=== PATIENT | female | born 1965 | race Caucasian/White ===

== ENCOUNTER 2017-05-19 12:46 | Observation (INO) | payer OTHER ==
[~2017-05-19] VITALS: Ht 157.5 cm; Wt 83.5 kg
[2017-05-19] MEDS ORDERED: SODIUM CHLORIDE 0.9% 1000ML 1,000 ML IV STA (13:06)
--- NOTE | 2017-05-19 13:12 | EMERGENCY ROOM VISIT NOTE ---
History Report prepared by Ayad: Shannen Trammell Under the Supervision of: Dr. Kaleb Mercado M.D. First contact with patient: 12:57 Chief Complaint: REFERRED BY DOCTOR Stated Complaint: GALLBLADDER History of Present Illness The patient is a 51 year old female who presents to the Emergency Room with complaints of intermittent abdominal pain beginning on Thursday, three days ago. The patient was at [facility] where she had a CT done which showed cholecystitis. She states she took three ibuprofen this morning at 9:30 am. She reports dark urine and decreased appetite but she denies any vomiting or fever. The patient last ate around 11:00 am. She is not on any blood thinners. The patient smokes half a pack of cigarettes a day. Source of History: patient Onset: three days ago Position: abdomen Quality: other (pain) Timing: intermittent Associated Symptoms: + abdominal pain, + urinary symptoms, No fevers, No vomiting Review of Systems See HPI for pertinent positives & negatives. A total of 10 systems reviewed and were otherwise negative. Past Medical & Surgical Medical Problems: (1) Cholecystitis (2) No Known Active Medical Problems Family History Patient reports no known family medical history. Social History Smoking Status: Current Every Day Smoker Marital Status: Housing Status: lives with family Current/Historical Medications No Active Prescriptions or Reported Meds Allergies Coded Allergies: No Known Allergies (Verified , 05/19/17) Physical Exam Vital Signs Date Time Temp Pulse Resp B/P (MAP) Pulse Ox O2 Delivery O2 Flow Rate FiO2 05/19/17 14:19 81 16 148/94 96 05/19/17 12:50 36.9 93 18 161/91 98 Room Air Physical Exam GENERAL: Patient is uncomfortable appearing and in mild distress. EYES: No scleral icterus, unremarkable pupils. ENT: Mucous membranes moist, no nasal congestion. NECK: No masses appreciated, no meningismus, trachea is midline. RESPIRATORY: No dyspnea. Clear to auscultation and equal bilaterally. No wheeze , no rhonchi. CARDIOVASCULAR: Regular rate and rhythm. No murmurs, rubs, gallops appreciated. GASTROINTESTINAL:Moderate RUQ tenderness to palpation with guarding. Abdomen soft, no peritonitis. Bowel sounds positive. No masses appreciated. BACK: No midline tenderness, no CVA tenderness EXTREMITIES: Normal motion all extremities, no cyanosis, no edema. NEUROLOGIC: Alert and oriented, no acute motor or sensory deficits, no focal weakness, cranial nerves grossly intact. SKIN: No rash, no jaundice, no diaphoresis. Medical Decision & Procedures ER Provider Diagnostic Interpretation: Radiology results and stated below per my review and radiologist interpretation: CHEST ONE VIEW PORTABLE FINDINGS: Cardiomediastinal and hilar silhouettes are within normal limits. There is no pneumothorax, pleural effusion, focal airspace consolidation or overt pulmonary edema. The bones of the chest appear grossly intact. IMPRESSION: No acute process. The above report was generated using voice recognition software. It may contain grammatical, syntax or spelling errors. Electronically signed by: Albert Duff M.D. Laboratory Results 05/19/17 13:14 Red Blood Count 4.16, Mean Corpuscular Volume 90.9, Mean Corpuscular Hemoglobin 32.5, Mean Corpuscular Hemoglobin Concent 35.7, Mean Platelet Volume 9.7, Neutrophils (%) (Auto) 64.6, Lymphocytes (%) (Auto) 26.1, Monocytes (%) (Auto) 7.7, Eosinophils (%) (Auto) 1.0, Basophils (%) (Auto) 0.2, Neutrophils # (Auto) 6.07, Lymphocytes # (Auto) 2.45, Monocytes # (Auto) 0.72, Eosinophils # (Auto) 0.09, Basophils # (Auto) 0.02 05/19/17 13:14 Test 05/19/17 13:14 05/19/17 13:57 White Blood Count 9.39 K/uL (4.8-10.8) Red Blood Count 4.16 M/uL (4.2-5.4) Hemoglobin 13.5 g/dL (12.0-16.0) Hematocrit 37.8 % (37-47) Mean Corpuscular Volume 90.9 fL (80-100) Mean Corpuscular Hemoglobin 32.5 pg (25-34) Mean Corpuscular Hemoglobin Concent 35.7 g/dl (32-36) Platelet Count 252 K/uL (130-400) Mean Platelet Volume 9.7 fL (7.4-10.4) Neutrophils (%) (Auto) 64.6 % Lymphocytes (%) (Auto) 26.1 % Monocytes (%) (Auto) 7.7 % Eosinophils (%) (Auto) 1.0 % Basophils (%) (Auto) 0.2 % Neutrophils # (Auto) 6.07 K/uL (1.4-6.5) Lymphocytes # (Auto) 2.45 K/uL (1.2-3.4) Monocytes # (Auto) 0.72 K/uL (0.11-0.59) Eosinophils # (Auto) 0.09 K/uL (0-0.5) Basophils # (Auto) 0.02 K/uL (0-0.2) RDW Standard Deviation 42.9 fL (36.4-46.3) RDW Coefficient of Variation 12.9 % (11.5-14.5) Immature Granulocyte % (Auto) 0.4 % Immature Granulocyte # (Auto) 0.04 K/uL (0.00-0.02) Anion Gap 6.0 mmol/L (3-11) Est Creatinine Clear Calc Drug Dose 82.5 ml/min Estimated GFR () 99.1 Estimated GFR (Non- 85.5 BUN/Creatinine Ratio 10.7 (10-20) Calcium Level 9.1 mg/dl (8.5-10.1) Total Bilirubin 0.7 mg/dl (0.2-1) Direct Bilirubin 0.2 mg/dl (0-0.2) Aspartate Amino Transf (AST/SGOT) 23 U/L (15-37) Alanine Aminotransferase (ALT/SGPT) 33 U/L (12-78) Alkaline Phosphatase 99 U/L (45-117) Total Protein 7.6 gm/dl (6.4-8.2) Albumin 3.4 gm/dl (3.4-5.0) Lipase 144 U/L (73-393) Urine Color YELLOW Urine Appearance CLEAR (CLEAR) Urine pH 5.5 (4.5-7.5) Urine Specific Luckey 1.005 (1.000-1.030) Urine Protein NEG (NEG) Urine Glucose (UA) NEG (NEG) Urine Ketones NEG (NEG) Urine Occult Blood 1+ (NEG) Urine Nitrite NEG (NEG) Urine Bilirubin NEG (NEG) Urine Urobilinogen NEG (NEG) Urine Leukocyte Esterase TRACE (NEG) Urine WBC (Auto) /hpf (0-5) Urine RBC (Auto) /hpf (0-4) Urine Hyaline Casts (Auto) /lpf (0-5) Urine Epithelial Cells (Auto) /lpf (0-5) Urine Bacteria (Auto) (NEG) Urine RBC 0-4 /hpf (0-4) Urine WBC 1-5 /hpf (0-5) Urine Epithelial Cells 10-20 /lpf (0-5) Urine Bacteria NEG (NEG) Laboratory results as reviewed by me. Medications Administered Medications (Trade) Dose Ordered Sig/Pelon Route Start Time Stop Time Status Last Admin Dose Admin Sodium Chloride 1,000 ml @ 75 mls/hr [id number] STAT IV 05/19/17 13:06 05/19/17 15:41 DC 05/19/17 13:16 75 MLS/HR Cefoxitin Sodium (Mefoxin 2000mg/ 60 ml D5W) 2,000 mg NOW STAT IV 05/19/17 13:32 05/19/17 13:33 DC 05/19/17 13:45 2,000 MG ECG Per My Interpretation Indication: abdominal pain Rate (beats per minute): 84 Rhythm: normal sinus Findings: no acute ischemic change, no ectopy, other (QTC 413) ED Course 1258: The patient was evaluated in room B7. A complete history and physical exam was performed. 1330: Discussed the patient's case with Edinson Villa. He states he is in an emergency but will be into the ED soon to evaluate the patient. 1426: Dr. Khan-Surgery at bedside. I discussed the patient's case with him. He declines any need for further imaging, the patient will be taken to the OR. Medical Decision Differential: Cholecystitis, Gallbladder disfunction, Hepatic Disfunction, Gastritis/PUD, Pancreatitis, ACS, Aortic Pathology, amongst other pathologies entertained. 51 yr old female arrives for evaluation of acute RUQ pain which returned after happening a few weeks ago. Had CT as outpatient which revealed acute cholecystitis which is consistent with the TTP she has over RUQ. Labs look OK without elevated Bili and wbc OK. CXR and EKG for pre-op purposes. 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 Surgery contacted and agree with holding off on further imaging. Given IV mefoxin for initial coverage. Not septic at time of admission. No evidence of perforation at this time. Medication Reconcilliation Current Medication List: was personally reviewed by me Blood Pressure Screening Patient's blood pressure: Elevated blood pressure Blood pressure disposition: Elevated BP felt to be situational Consults Time Called: 1329 Consulting Physician: Edinson Ng Surgery Returned Call: 1330 Discussed the patient's case with Edinson Ng Surgery. He states he is in an emergency but will be into the ED soon to evaluate the patient. Impression Primary Impression: Acute cholecystitis Scribe Attestation The scribe's documentation has been prepared under my direction and personally reviewed by me in its entirety. I confirm that the note above accurately reflects all work, treatment, procedures, and medical decision making performed by me. Departure Information Dispostion Being Evaluated By Surgeon Prescriptions No Active Prescriptions or Reported Meds Referrals Caleb Mendez M.D. (PCP) Patient Instructions My [facility]
[2017-05-19 13:25] LABS: BASO % 0.2 %; BASO ABS # 0.02 K/uL (0-0.2); EOS ABS # 0.09 K/uL (0-0.5); HEMATOCRIT 37.8 % (37-47); HEMOGLOBIN 13.5 g/dL (12.0-16.0); IG# 0.04 K/uL (0.00-0.02); LYMPH % 26.1 %; LYMPH ABS # 2.45 K/uL (1.2-3.4); MEAN CELL VOLUME 90.9 fL (80-100); MEAN CORPUSCULAR HEMOGLOBIN 32.5 pg (25-34); MEAN CORPUSCULAR HGB CONC 35.7 g/dl (32-36); MEAN PLATELET VOLUME 9.7 fL (7.4-10.4); MONO % 7.7 %; MONO ABS # 0.72 K/uL (0.11-0.59); NEUT % 64.6 %; NEUT ABS # 6.07 K/uL (1.4-6.5); PLATELET COUNT 252 K/uL (130-400); RED CELL DISTRIBUTION WIDTH CV 12.9 % (11.5-14.5); RED CELL DISTRIBUTION WIDTH SD 42.9 fL (36.4-46.3); WHITE BLOOD COUNT 9.39 K/uL (4.8-10.8)
[2017-05-19] MEDS ORDERED: CEFOXITIN 2000MG/60 ML D5W IV STA (13:32)
--- NOTE | 2017-05-19 13:44 | DIAGNOSTIC IMAGING REPORT ---
CHEST ONE VIEW PORTABLE HISTORY: 51 years-old Female pre-op preoperative exam. No acute chest complaints COMPARISON: None available TECHNIQUE: Portable AP view of the chest FINDINGS: Cardiomediastinal and hilar silhouettes are within normal limits. There is no pneumothorax, pleural effusion, focal airspace consolidation or overt pulmonary edema. The bones of the chest appear grossly intact. IMPRESSION: No acute process. The above report was generated using voice recognition software. It may contain grammatical, syntax or spelling errors. Electronically signed by: Albert Duff M.D. 05/19/2017 1:43 PM Dictated Date/Time: 05/19/2017 1:42 PM
[2017-05-19 13:53] LABS: ALBUMIN 3.4 gm/dl (3.4-5.0); CALCIUM 9.1 mg/dl (8.5-10.1); CREATININE 0.79 mg/dl (0.60-1.20); POTASSIUM 3.8 mmol/L (3.5-5.1)
[2017-05-19 13:57] LABS: TOTAL PROTEIN 7.6 gm/dl (6.4-8.2)
--- NOTE | 2017-05-19 14:24 | History and Physical ---
History & Physical Date May 19, 2017. History of Present Illness The patient is a 51 year old female with complaints of a 3 day history of upper abdominal pain, worse with eating. US yesterday showed stones/sludge and subsequent CT done at [facility] today shows acute cholecystitis. Past Medical/Surgical History Medical Problems: (1) No Known Active Medical Problems Additional History Hepatic Disease: No Endocrine Disorder: No Kidney Disease: No Hypertension: No Heart Disease: No Bleeding Tendencies: No Infectious Diseases: No Allergies Coded Allergies: No Known Allergies (Verified , 05/19/17) Home Medications No Active Prescriptions or Reported Meds Physical Examination Skin: warm/dry, no rash Eyes: normal inspection, EOMI, sclerae normal Head: normocephalic, atraumatic Neck: supple, trachea midline Respiratory/Chest: no respiratory distress Cardiovascular: no edema Abdomen / GI: + pertinent finding (+RUQ firmness with exquiset tenderness over gallbladder) Neurologic/Psych: alert, oriented x 3 Diagnosis acute calculous cholecystits Plan of Treatment LFT's normal discussed options. discussed risks ( bleeding/infection/dvt/pe/injury to other organs, bile leaks, etc...) questions answered. will proceed with lap gisselle today
[2017-05-19] MEDS ORDERED: ONDANSETRON INJ 2 MG/ML 2 ML VIAL IV PRN ×3 (14:30→20:45)
[2017-05-19] MEDS ORDERED: IV FLUIDS COMPLETED PRN ×3 (15:15→21:00)
[2017-05-19] MEDS: MoRPHine SULFATE 2 MG/ML CARP IV PRN ×2 (15:42→22:33)
[2017-05-19] MEDS ORDERED: LACTATED RINGER'S 1000ML 1,000 ML IV SCH ×2 (16:00→20:36)
[2017-05-19 16:30] VITALS: BP 157/96; PULSE 77; TEMP 36.8; O2SAT 96; Ht 157.5 cm; Wt 83.5 kg
[2017-05-19] MEDS ORDERED: AMPICILLIN/SULBACTAM SOD INJ 1,500 MG in SODIUM CHLORIDE 0.9% 100ML 100 ML IV SCH (18:00)
--- NOTE | 2017-05-19 18:14 | History & Physical Bridge Note ---
H&P Re-Evaluation Bridge Note: I have examined the patient, reviewed the History & Physical and in the interval since the performance of the History & Physical I have noted the following changes of clinical significance: No changes noted
[2017-05-19] MEDS ORDERED: BUPIVACAINE/EPINEPHRINE 0.5% MPF 1:200,000 30 ML VIAL ONE (18:39)
[2017-05-19] MEDS ORDERED: MIDAZOLAM HCL 1 MG/ML 2ML VIAL ONE (18:40)
[2017-05-19] MEDS ORDERED: FENTANYL CITRATE INJ 50 MCG/1 ML 2 ML VIAL ONE ×3 (18:40→20:17)
[2017-05-19] MEDS ORDERED: PROPOFOL IV EMULSION 10 MG/ML 20 ML VIAL IV ONE (18:41)
[2017-05-19] MEDS ORDERED: LIDOCAINE HCL 2% 2 ML VIAL (20MG/ML) ONE (18:41)
[2017-05-19] MEDS ORDERED: ROCURONIUM BROMIDE 10 MG/ML 5 ML VIAL IV ONE (18:41)
[2017-05-19] MEDS ORDERED: NALOXONE HCL 0.4 MG/1 ML VIAL/CARP IV PRN (18:45)
[2017-05-19] MEDS ORDERED: ATROPINE SULFATE 0.1 MG/ML 5ML SYR IV PRN (18:45)
[2017-05-19] MEDS ORDERED: FLUMAZENIL 0.1 MG/1 ML 10 ML VIAL IV PRN (18:45)
[2017-05-19] MEDS ORDERED: FENTANYL CITRATE INJ 50 MCG/1 ML 2 ML VIAL IV PRN (18:45)
[2017-05-19] MEDS ORDERED: LABETALOL HCL IV 5 MG/ML 20ML IV PRN (18:45)
[2017-05-19] MEDS ORDERED: EpHEDrine SULFATE INJ 50 MG/ML AMP IV PRN (18:45)
[2017-05-19] MEDS ORDERED: PHENYLEPHRINE 100MCG/ML 5ML SYR IV PRN (18:45)
[2017-05-19] MEDS ORDERED: MEPERIDINE HCL 25 MG/ML CARP IV PRN (18:45)
[2017-05-19] MEDS ORDERED: HYDROmorphone INJ 2 MG/ML SYR/VIAL IV PRN (18:45)
[2017-05-19] MEDS ORDERED: ONDANSETRON INJ 2 MG/ML 2 ML VIAL ONE ×3 (19:00→21:10)
[2017-05-19] MEDS ORDERED: DEXAMETHASONE SOD INJ 4 MG/ML VIAL ONE ×2 (19:00→19:15)
[2017-05-19] MEDS ORDERED: CEFOXITIN SOD 1 GM VIAL ONE (19:00)
[2017-05-19] MEDS ORDERED: ESMOLOL HCL 10 MG/ML 10 ML VIAL ONE (19:16)
[2017-05-19] MEDS ORDERED: KETOROLAC TROMETHAMINE 30 MG/ML VIAL ONE (20:07)
--- NOTE | 2017-05-19 20:26 | [facility] Post Operative Brief Note ---
Immediate Operative Summary Operative Date May 19, 2017. Pre-Operative Diagnosis Acute calculous cholecystitis Post-Operative Diagnosis Acute calculous cholecystitis, umbilical hernia Procedure(s) Performed Laparoscopic Cholecystectomy Surgeon Dr Khan Floor Layer Tile Surgeon(s) Vale Law PA-C Estimated Blood Loss 150cc Findings Consistent with Post-Op Diagnosis umbilical hernia Specimens A. Gallbladder and contents Drains ROSLYN into RUQ Anesthesia Type General Complication(s) none
--- NOTE | 2017-05-19 20:37 | [facility] Operative Report ---
Operative Report Operative Date May 19, 2017. Pre-Operative Diagnosis Acute calculous cholecystitis Post-Operative Diagnosis Acute calculous cholecystitis, umbilical hernia Procedure(s) Performed Laparoscopic Cholecystectomy Surgeon Dr Khan Development Disability Specialist Surgeon(s) Vale Law PA-C Estimated Blood Loss 150cc Findings umbilical hernia Specimens A. Gallbladder and contents Drains ROSLYN into RUQ Anesthesia Type General Complication(s) none Description of Procedure After informed consent was obtained the patient was taken to the operating room and placed in the supine position. After successful intubation the abdomen was sterilely prepped and draped in usual fashion. A periumbilical incision was made with an 11 blade scalpel and carried down through the soft tissue using electrocautery. The anterior rectus fascia was opened using electrocautery and 2 #0 Vicryl stay sutures were placed. We noted an umbilical hernia that we would repair at the end of the case. The peritoneum was elevated with hemostats and incised under direct vision using Metzenbaum scissors. A finger sweep was performed and a 12 mm Keller trocar was placed. The abdomen was insufflated to 18 mmHg. The laparoscope was inserted and the abdomen was examined in 360. We immediately noted a markedly inflamed gallbladder with omental wrapping. a subxiphoid 5 mm port which would later be converted to a 12 mm port and 2 right upper quadrant 5 mm ports were placed under direct vision. The patient was placed in a reverse Trendelenburg position and slightly air planed to the left. I began by peeling the omentum off of the gallbladder. The gallbladder was so distended that we could not grasp it with graspers. I therefore drained it with a gallbladder needle revealing white bile indicating complete cystic duct obstruction. After draining the gallbladder we were then able to grasp the gallbladder and elevated superiorly and laterally. A [place] dissector was used to take down adhesions around the neck of the gallbladder. The cystic duct was identified and skeletonized. Because of the inflammation it was too thick to use a gallbladder clip. At this point I converted the trocar to a 12 mm and used a 30 mm brown cartridge ALEX stapler to transect the cystic duct. In similar fashion the cystic artery was identified and skeletonized clipped and divided. The gallbladder was removed from the gallbladder fossa with electrocautery. Because of the inflammation there was generalized oozing on the gallbladder fossa. Eventually I was able to get the gallbladder completely removed intact and it was placed into an Endo Catch bag. Thorough irrigation was performed. At the end of the procedure there was adequate hemostasis and no evidence of any bile leaks. I decided to place some Surgicel into the gallbladder fossa as well as a 10 flat Néstor-Garza drain and brought out through 1 of the port sites. It was secured to skin using 2-0 nylon. A final look around the abdomen showed no other abnormalities. I had to extend the umbilical incision in order to get the gallbladder and contents out. The gallbladder and trochars were all removed and the abdomen was desufflated. I was then able to completely reduce the hernia sac associated with the umbilical defect. I was able to include the fascial defect with my port closure. I used 0 Vicryl with multiple [id number] sutures to primarily close the defect. All the wounds were irrigated and closed using 4-0 Monocryl. Marcaine was injected around them for postoperative analgesia and skin glue used as a dressing. The patient was awaken extubated and transferred to recovery in stable condition. My physician's accounts receivable assistant was present through the entire case. He helped prep the patient. Helped with exposure for trocar placement. He helped retract the gallbladder throughout my dissection and helped with wound closure and dressing placement. I attest to the content of the Intraoperative Record and any orders documented therein. Any exceptions are noted below.
--- NOTE | 2017-05-19 20:41 | Anesthesiology Progress Note ---
Anesthesia Post Op Note Date & Time May 19, 2017 at 20:41 Vital Signs Pain Intensity: 1 Vital Signs Past 12 Hours Date Time Temp Pulse Resp B/P (MAP) Pulse Ox O2 Delivery O2 Flow Rate FiO2 05/19/17 16:30 36.8 77 16 157/96 96 Room Air 05/19/17 15:42 77 16 162/101 97 Room Air 05/19/17 14:19 81 16 148/94 96 05/19/17 12:50 36.9 93 18 161/91 98 Room Air Notes Mental Status: alert / awake / arousable, participated in evaluation Pt Amnestic to Procedure: Yes Nausea / Vomiting: adequately controlled Pain: adequately controlled Airway Patency, RR, SpO2: stable & adequate BP & HR: stable & adequate Hydration State: stable & adequate Anesthetic Complications: no major complications apparent
[2017-05-19] MEDS ORDERED: HYDROmorphone INJ 1 MG/ML SYR IV PRN (20:45)
[2017-05-19] MEDS ORDERED: HYDROmorphone INJ 0.5 MG/0.5 ML SYR IV PRN (20:45)
[2017-05-19] MEDS ORDERED: HYDROCODONE/ACETAMIN 5/325MG TAB PO PRN (20:45)
[2017-05-19 21:20] VITALS: BP 145/85; PULSE 84; TEMP 36.9; O2SAT 96
[2017-05-19 21:40] LABS: BASO % 0.2 %; BASO ABS # 0.02 K/uL (0-0.2); EOS % 0.2 %; EOS ABS # 0.02 K/uL (0-0.5); HEMATOCRIT 36.4 % (37-47); HEMOGLOBIN 12.5 g/dL (12.0-16.0); IG# 0.02 K/uL (0.00-0.02); LYMPH % 6.9 %; LYMPH ABS # 0.75 K/uL (1.2-3.4); MEAN CELL VOLUME 92.2 fL (80-100); MEAN CORPUSCULAR HEMOGLOBIN 31.6 pg (25-34); MEAN CORPUSCULAR HGB CONC 34.3 g/dl (32-36); MEAN PLATELET VOLUME 9.6 fL (7.4-10.4); MONO % 2.7 %; NEUT % 89.8 %; PLATELET COUNT 227 K/uL (130-400); RED CELL DISTRIBUTION WIDTH CV 12.8 % (11.5-14.5); RED CELL DISTRIBUTION WIDTH SD 43.4 fL (36.4-46.3); WHITE BLOOD COUNT 10.91 K/uL (4.8-10.8)
[2017-05-19] MEDS: ACETAMINOPHEN IV 1,000 MG in EMPTY BAG 0 ML IV SCH (21:47)
[2017-05-19 21:55] VITALS: BP 147/83; PULSE 88; TEMP 36.9; O2SAT 95
[2017-05-19 22:00] LABS: CALCIUM 8.7 mg/dl (8.5-10.1); CREATININE 0.83 mg/dl (0.60-1.20); POTASSIUM 3.7 mmol/L (3.5-5.1)
[2017-05-19 22:23] VITALS: BP 134/88; PULSE 88; TEMP 36.9; O2SAT 91
[2017-05-19 23:20] VITALS: BP 131/75; PULSE 88; TEMP 36.9; O2SAT 97
[2017-05-20 00:20] VITALS: BP 135/82; PULSE 94; TEMP 36.9; O2SAT 96
[2017-05-20] MEDS: CEFOXITIN IV 2,000 MG in DEXTROSE 5% 50ML 50 ML IV SCH ×2 (00:49→06:24)
[2017-05-20 03:05] VITALS: BP 144/79; PULSE 68; TEMP 36.5; O2SAT 96
[2017-05-20] MEDS: HYDROCODONE/ACETAMIN 5/325MG TAB PO PRN ×2 (03:12→10:36)
[2017-05-20 05:40] VITALS: O2SAT 92
[2017-05-20] MEDS ORDERED: CEFOXITIN IV 2,000 MG in DEXTROSE 5% 50ML 50 ML IV ONE (06:00)
[2017-05-20] MEDS: ACETAMINOPHEN IV 1,000 MG in EMPTY BAG 0 ML IV SCH (06:08)
--- NOTE | 2017-05-20 06:48 | Surgery Progress Note ---
Surgery Progress Note Date of Service May 20, 2017. Subjective Post OP Day: 1 + feeling well, + ambulating, + pain controlled, + diet (Reports she has not eaten yet. ), No complaints, No nausea, No vomiting Reports she had some issues with urinating earlier. She was bladder scanned. Reports this has resolved and she is urinating okay at this time. Objective Vital Signs: Date Time Temp Pulse Resp B/P (MAP) Pulse Ox O2 Delivery O2 Flow Rate FiO2 05/20/17 05:40 92 Room Air 05/20/17 03:05 36.5 68 17 144/79 (100) 96 Nasal Cannula 2.0 05/20/17 00:20 36.9 94 18 135/82 (99) 96 Room Air 05/19/17 23:30 Nasal Cannula 2.0 05/19/17 23:20 36.9 88 16 131/75 (93) 97 Nasal Cannula 2.0 05/19/17 22:23 36.9 88 16 134/88 (103) 91 Nasal Cannula 2.0 05/19/17 21:55 36.9 88 16 147/83 (104) 95 Nasal Cannula 2.0 05/19/17 21:20 36.9 84 16 145/85 (105) 96 Nasal Cannula 2.0 05/19/17 21:20 Nasal Cannula 2.0 05/19/17 21:10 37.0 83 18 141/80 96 Nasal Cannula 2 05/19/17 21:00 79 18 150/79 96 Nasal Cannula 2 05/19/17 20:50 91 16 147/80 96 Oxymask 6 05/19/17 20:40 86 14 141/82 95 Oxymask 6 05/19/17 20:34 37.0 85 16 139/90 96 Oxymask 6 05/19/17 16:30 36.8 77 16 157/96 96 Room Air 05/19/17 15:42 77 16 162/101 97 Room Air 05/19/17 14:19 81 16 148/94 96 05/19/17 12:50 36.9 93 18 161/91 98 Room Air Physical Exam: ROSLYN drainage (minimal drainage, serosanguinous) General Appearance: WD/WN, no apparent distress Head: normocephalic, atraumatic Respiratory/Chest: no respiratory distress, no accessory muscle use Abdomen: non distended, soft, no organomegaly, + tenderness (Incisional mild) Incision(s): clean, dry, intact, no erythema, no drainage Laboratory Results: Results Past 24 Hours Test 05/19/17 13:14 05/19/17 13:57 05/19/17 18:45 05/19/17 21:28 Range/Units White Blood Count 9.39 10.91 4.8-10.8 K/uL Red Blood Count 4.16 3.95 4.2-5.4 M/uL Hemoglobin 13.5 12.5 12.0-16.0 g/dL Hematocrit 37.8 36.4 37-47 % Mean Corpuscular Volume 90.9 92.2 80-100 fL Mean Corpuscular Hemoglobin 32.5 31.6 25-34 pg Mean Corpuscular Hemoglobin Concent 35.7 34.3 32-36 g/dl Platelet Count 252 227 130-400 K/uL Mean Platelet Volume 9.7 9.6 7.4-10.4 fL Neutrophils (%) (Auto) 64.6 89.8 % Lymphocytes (%) (Auto) 26.1 6.9 % Monocytes (%) (Auto) 7.7 2.7 % Eosinophils (%) (Auto) 1.0 0.2 % Basophils (%) (Auto) 0.2 0.2 % Neutrophils # (Auto) 6.07 9.80 1.4-6.5 K/uL Lymphocytes # (Auto) 2.45 0.75 1.2-3.4 K/uL Monocytes # (Auto) 0.72 0.30 0.11-0.59 K/uL Eosinophils # (Auto) 0.09 0.02 0-0.5 K/uL Basophils # (Auto) 0.02 0.02 0-0.2 K/uL RDW Standard Deviation 42.9 43.4 36.4-46.3 fL RDW Coefficient of Variation 12.9 12.8 11.5-14.5 % Immature Granulocyte % (Auto) 0.4 0.2 % Immature Granulocyte # (Auto) 0.04 0.02 0.00-0.02 K/uL Sodium Level 138 138 136-145 mmol/L Potassium Level 3.8 3.7 3.5-5.1 mmol/L Chloride Level 107 108 98-107 mmol/L Carbon Dioxide Level 25 22 21-32 mmol/L Anion Gap 6.0 8.0 3-11 mmol/L Blood Urea Nitrogen 8 10 7-18 mg/dl Creatinine 0.79 0.83 0.60-1.20 mg/dl Est Creatinine Clear Calc Drug Dose 82.5 78.5 ml/min Estimated GFR () 99.1 93.3 Estimated GFR (Non- 85.5 80.5 BUN/Creatinine Ratio 10.7 11.7 10-20 Random Glucose 88 133 70-99 mg/dl Calcium Level 9.1 8.7 8.5-10.1 mg/dl Total Bilirubin 0.7 0.9 0.2-1 mg/dl Direct Bilirubin 0.2 0.3 0-0.2 mg/dl Aspartate Amino Transf (AST/SGOT) 23 51 15-37 U/L Alanine Aminotransferase (ALT/SGPT) 33 49 12-78 U/L Alkaline Phosphatase 99 97 45-117 U/L Total Protein 7.6 7.0 6.4-8.2 gm/dl Albumin 3.4 3.0 3.4-5.0 gm/dl Lipase 144 73-393 U/L Urine Color YELLOW Urine Appearance CLEAR CLEAR Urine pH 5.5 4.5-7.5 Urine Specific Crawford 1.005 1.000-1.030 Urine Protein NEG NEG Urine Glucose (UA) NEG NEG Urine Ketones NEG NEG Urine Occult Blood 1+ NEG Urine Nitrite NEG NEG Urine Bilirubin NEG NEG Urine Urobilinogen NEG NEG Urine Leukocyte Esterase TRACE NEG Urine WBC (Auto) 0-5 /hpf Urine RBC (Auto) 0-4 /hpf Urine Hyaline Casts (Auto) 0-5 /lpf Urine Epithelial Cells (Auto) 0-5 /lpf Urine Bacteria (Auto) NEG Urine RBC 0-4 0-4 /hpf Urine WBC 1-5 0-5 /hpf Urine Epithelial Cells 10-20 0-5 /lpf Urine Bacteria NEG NEG Test 05/20/17 04:44 05/20/17 06:30 Range/Units Assessment & Plan POD #1 s/p laparoscopic cholecystectomy pain controlled, Urinating okay, No N/V, has not eaten yet per patient. Full liquids for breakfast, ADAT. Minimal ROSLYN drainage, keep for now. most likely pull prior to D/C. AM labs pending. Probable d/c today if she tolerates foods.
[2017-05-20] MEDS ORDERED: HYDR-5688 PO (06:51)
--- NOTE | 2017-05-20 06:51 | Discharge Instructions ---
Discharge Instructions Date of Service May 20, 2017. Admission Reason for Admission: Cholecystitis Discharge Discharge Diagnosis / Problem: cholecystitis Discharge Goals Goal(s): Decrease discomfort, Improve function Activity Recommendations Activity Limitations: as noted below Lifting Limitations: no more than 10 pounds, until after follow-up appointment Exercise/Sports Limitations: until after follow-up appointment May Resume Sexual Activity: after follow-up appointment Shower/Bathe: tomorrow Driving or Machine Use: resume 3 days after discharge (Please do not drive while using narcotic pain medication) . Instructions / Follow-Up Instructions / Follow-Up You have surgical glue covering your incisions. Please allow this to fall off on its own. You have been prescribed norco to take as needed for pain relief. Please follow-up with Dr. Khan in 1-2 weeks. Contact our office at to schedule an appointment if you have not done so already. Please contact our office with any further questions or concerns. [employer]. [address] [place] [address]. Current Hospital Diet Patient's current hospital diet: Full Liquid Diet Discharge Diet Recommended Diet: Regular Diet Procedures Procedures Performed: Laparoscopic Cholecystectomy Pending Studies Studies pending at discharge: yes List of pending studies: pathology Medical Emergencies . Who to Call and When: Medical Emergencies: If at any time you feel your situation is an emergency, please call 911 immediately. . Non-Emergent Contact Non-Emergency issues call your: Primary Care Provider, Surgeon Call Non-Emergent contact if: you have a fever, temperature is above 101.5, your pain is not controlled, your pain is worsening, wound has increased drainage, wound has increased redness . "Provider Documentation" section prepared by Slick Law. . [place] Drug Monitoring Program Search Results: patient reviewed within database, no issues identified
[2017-05-20 07:21] LABS: HEMATOCRIT 33.9 % (37-47); IG# 0.03 K/uL (0.00-0.02); LYMPH % 10.4 %; LYMPH ABS # 0.98 K/uL (1.2-3.4); MEAN CELL VOLUME 90.9 fL (80-100); MEAN CORPUSCULAR HEMOGLOBIN 32.2 pg (25-34); MEAN CORPUSCULAR HGB CONC 35.4 g/dl (32-36); MEAN PLATELET VOLUME 9.6 fL (7.4-10.4); MONO % 3.7 %; MONO ABS # 0.35 K/uL (0.11-0.59); NEUT % 85.6 %; NEUT ABS # 8.02 K/uL (1.4-6.5); PLATELET COUNT 245 K/uL (130-400); RED CELL DISTRIBUTION WIDTH CV 12.7 % (11.5-14.5); RED CELL DISTRIBUTION WIDTH SD 42.4 fL (36.4-46.3); WHITE BLOOD COUNT 9.38 K/uL (4.8-10.8)
[2017-05-20 07:53] VITALS: BP 122/76; PULSE 63; TEMP 36.7; O2SAT 93
[2017-05-20 08:42] VITALS: O2SAT 93
[2017-05-20 10:48] VITALS: BP 122/76; PULSE 63; TEMP 36.7; O2SAT 93
--- NOTE | 2017-05-20 11:05 | Anesthesiology Progress Note ---
Anesthesia Post Op Note Date & Time May 20, 2017 at 11:05 Vital Signs Pain Intensity: 6.5 Vital Signs Past 12 Hours Date Time Temp Pulse Resp B/P (MAP) Pulse Ox O2 Delivery O2 Flow Rate FiO2 05/20/17 10:48 36.7 63 16 93 Room Air 05/20/17 08:42 93 Room Air 05/20/17 07:53 36.7 63 16 122/76 (91) 93 Room Air 05/20/17 07:45 Room Air 05/20/17 05:40 92 Room Air 05/20/17 03:05 36.5 68 17 144/79 (100) 96 Nasal Cannula 2.0 05/20/17 00:20 36.9 94 18 135/82 (99) 96 Room Air 05/19/17 23:30 Nasal Cannula 2.0 05/19/17 23:20 36.9 88 16 131/75 (93) 97 Nasal Cannula 2.0 Notes Mental Status: alert / awake / arousable, participated in evaluation Pt Amnestic to Procedure: Yes Nausea / Vomiting: adequately controlled Pain: adequately controlled Airway Patency, RR, SpO2: stable & adequate BP & HR: stable & adequate Hydration State: stable & adequate Anesthetic Complications: no major complications apparent
--- NOTE | 2017-05-22 07:09 | Discharge Summary ---
Discharge Summary Date of Service May 22, 2017. Admission Date/Reason May 19, 2017 at 14:20 Cholecystitis. Discharge Date/Disposition May 20, 2017 Home Diagnosis Principal Diagnosis: acute cholecystitis Procedure(s) Performed laparoscopic cholecystectomy Medication Reconciliation [place] 5mg/325mg 1-2 tabs PO q4h PRN for pain x 3 days. Disp: 20 tabs. Admission Physical Exam As per Admitting History & Physical. Hospital Course 05/19/17: Patient presented to the ED this evening with RUQ abdominal pain x 3 days worse with eating. U/S from yesterday showed gallstones/sludge. CT today shows evidence of acute cholecystitis. At this time it was decided to proceed with laparoscopic cholecystectomy. The procedure was performed successfully without any complications. The patient was admitted to med/surg on observation for recovery. 05/20/17: Doing well, no complaints, pain controlled, urinating okay. Full liquids for breakfast. Patient was discharged later today once she was tolerating regular foods. She was discharged with pain medication and instructions to follow-up with Dr. Khan in 1-2 weeks. Discharge Instructions Please refer to the electronic Patient Visit Report (Discharge Instructions) for additional information.
== END 2017-05-20 11:28 | disposition home or self-care (01) ==
LOC: C.EDB 12:47 → C.MSW 14:20 → ENRESERV 15:12
PROVIDERS: ADMIT Surgery; ATTEND Surgery
DX: K80.00 Calculus of gallbladder with acute cholecystitis without obstruction (principal); K42.9 Umbilical hernia without obstruction or gangrene; F17.200 Nicotine dependence, unspecified, uncomplicated

== ENCOUNTER 2022-07-11 16:45 | Observation (INO) ==
[2022-07-11] MEDS ORDERED: OPTIRAY 320 500ml IV ONE (17:09)
--- NOTE | 2022-07-11 17:18 | Emergency Department Note ---
History of Present Illness General Chief complaint: TIA Symptoms Stated complaint: SLURRY SPEECH, Time Seen by Provider: 07/11/22 16:57 History of Present Illness Provider complaint: Slurred speech difficulty speaking Onset (ago): minute(s) (90) 56-year-old female presents emergency department for slurred speech and difficulty speaking. 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 No falls. No blood thinners. Home Medications Medication Instructions Recorded Confirmed Type No Known Home Medications 07/11/22 07/11/22 History Allergies Allergy/AdvReac Type Severity Reaction Status Date / Time No Known Allergies Allergy Unknown Verified 07/11/22 17:50 Past Med/Surg History Medical History No pertinent family history No pertinent past medical history Surgical History S/P cholecystectomy Social History (Updated 07/11/22 @ 18:41 by Akua Washburn MD) Smoking Status: Current every day smoker Second Hand Exposure: No; Do You Dip or Chew Tobacco: No; Tobacco Cessation Education Requested by Patient: No Hx Alcohol Use: No Hx Substance Use: No Preferred Language: Kazakh Communication Ability: Effective Software Quality Analyst Required: No Beliefs That Will Affect Care: None Current Living Situation: Spouse Other Information That Helps Us Care for You: No Feels Safe at Home: Yes Safety Concerns: Feels Safe At This Time Assistive Devices: Contacts Physical Exam Vital Signs Vital Signs - 24 hr 07/11/22 16:50 07/11/22 17:18 07/11/22 17:22 Temperature 36.6 C Temperature Source Temporal Artery Scan Pulse Rate 107 H Pulse Rate [Apical] 89 81 Pulse Rhythm [Apical] Regular Regular Pulse Strength [Apical] Normal Normal Respiratory Rate 18 16 17 Respiratory Effort / Characteristics Non-Labored Spontaneous Non-Labored Spontaneous Non-Labored Spontaneous Respiratory Depth Normal Normal Normal Respiratory Pattern Regular Regular Regular Blood Pressure 191/109 H Blood Pressure [Right Arm] 202/103 H 180/118 H Blood Pressure Mean 136 Blood Pressure Mean [Right Arm] 136 138 Blood Pressure Position Sitting Blood Pressure Position [Right Arm] Semi-fowlers Semi-fowlers Pulse Oximetry 91 98 98 Oxygen Delivery Method Room Air Room Air Room Air Sepsis Recent Fever Within 48 Hours No Sepsis New/Unexplained Change in Mental Status N/A Sepsis Action Taken by Nursing No Action Required 07/11/22 17:18 07/11/22 17:41 Temperature Temperature Source Pulse Rate 105 H Pulse Rate [Apical] 71 Pulse Rhythm [Apical] Regular Pulse Strength [Apical] Normal Respiratory Rate 18 Respiratory Effort / Characteristics Non-Labored Spontaneous Respiratory Depth Normal Respiratory Pattern Regular Blood Pressure Blood Pressure [Right Arm] 174/109 H Blood Pressure Mean Blood Pressure Mean [Right Arm] 130 Blood Pressure Position Blood Pressure Position [Right Arm] Semi-fowlers Pulse Oximetry 97 Oxygen Delivery Method Room Air Sepsis Recent Fever Within 48 Hours Sepsis New/Unexplained Change in Mental Status Sepsis Action Taken by Nursing Physical Exam GENERAL: oriented to person, place, and time. appears well-developed and well- nourished. HENT: Exam performed. - Head: Normocephalic and atraumatic. EYES: Conjunctivae and EOM are normal. Right eye exhibits no discharge. Left eye exhibits no discharge. No scleral icterus. NECK: Normal range of motion. Neck supple. No JVD present. CV: Normal rate, regular rhythm, normal heart sounds and intact distal pulses. There is no peripheral edema. Palpable radial pulses bue. PULM/CHEST: Effort normal and breath sounds normal. No respiratory distress. No stridor. no wheezes. no rales. ABD: The abdomen is soft. There is no tenderness. NEURO: NIHSS 2 (9:1, 10:1) SKIN: Skin is warm and dry. He is not diaphoretic. PSYCH: normal mood and affect. Behavior is normal. Judgment and thought content normal. Course Course 165: The patient was evaluated in room triage 1. A history and physical exam was performed Patient was taken to CT scan and code stroke called. 1707: CT of the head reviewed by me without contrast shows no ICH. Spoke with Dr. Jocelyne Verahey teleroke will evaluate the patient. 1716: Cardiac monitoring: An order was placed for continuous cardiac monitoring. The monitor shows a rate of 100 with sinus rhythm interpreted by me 1718: Dr. Casanova on the telestroke cart with the patient. 1728: Per nurses and stroke nurse Dr. Casanova recommends labetalol 20 mg IV push. 1736: Patient's blood pressure improved status post labetalol. Patient's dysarthria and expressive aphasia has improved. Spoke with Dr. Casanova who recommends against TNK. She thinks that the patient symptoms are most likely due to hypertensive urgency/hypertensive encephalopathy. Patient will be admitted to the hospitalist team for further work-up. She recommends aspirin and IV fluids. Administered Medications Sodium Chloride (Nss 1000ml) 1,000 mls @ 80 mls/hr IV .[id number] Stop: 08/10/22 17:59 Last Admin: 07/11/22 18:20 Dose: 80 mls/hr Documented By: KRISTOFER Discontinued Medications Aspirin (Aspirin Chew 324 Mg) 324 mg PO NOW STA Stop: 07/11/22 17:48 Last Admin: 07/11/22 17:53 Dose: 324 mg Documented By: KRISTOFER Gadobutrol (Gadobutrol 65ml Vial) 8 ml IV ONCE ONE Stop: 07/11/22 19:42 Last Admin: 07/11/22 19:42 Dose: 8 ml Documented By: TONI Ioversol (Optiray 320 500ml) 106 ml IV ONCE ONE Stop: 07/11/22 17:10 Last Admin: 07/11/22 17:09 Dose: 106 ml Documented By: JUSTINA Labetalol HCl (Labetalol Hcl Iv 5 Mg/Ml 20ml) Confirm Administered Dose 20 mg IV .STK-MED ONE Stop: 07/11/22 17:26 Last Admin: 07/11/22 17:26 Dose: 20 mg Documented By: LISSETH Co-signed By: KRISTOFER Critical Care Time Critical Care Time: Yes Total Critical Care Time: 45 I have personally spent greater than 45 minutes of critical care time in the direct management of this patient. This includes bedside care, interpretation of diagnostic studies, and testing, discussion with consultants, patient, and family members, and other required patient management activities. This 45 minutes is in excess of all separately billable procedures. Medical Decision Making Laboratory Data Attestation: I reviewed the patient's lab results. 07/11/22 17:14 Lab Results 07/11/22 07/11/22 07/11/22 Range/Units 17:14 17:14 17:14 WBC 6.22 (4.8-10.8) K/ul RBC 4.09 L (4.20-5.40) M/uL Hgb 13.2 (12.0-16.0) g/dl Hct 38.4 (37.0-47.0) % MCV 93.9 (80.0-100.0) fL MCH 32.3 (25.0-34.0) pg MCHC 34.4 (32.0-36.0) g/dL RDW Std Deviation 43.9 (36.4-46.3) fL RDW Coeff of [place] 12.7 (11.5-14.5) % Plt Count 217 (130-400) K/uL MPV 9.7 (9.4-12.4) fL Immature Gran % (Auto) 0.2 % Neut % (Auto) 49.3 % Lymph % (Auto) 40.8 % [place] % (Auto) 6.3 % Eos % (Auto) 2.9 % Baso % (Auto) 0.5 % Neut # (Auto) 3.07 (1.40-6.50) K/uL Lymph # (Auto) 2.54 (1.2-3.4) K/uL [place] # (Auto) 0.39 (0.11-0.59) K/uL Eos # (Auto) 0.18 (0-0.50) K/uL Baso # (Auto) 0.03 (0-0.2) K/uL Immature Gran # (Auto) 0.01 (0.01-0.20) K/uL PT 11.1 (9.0-12.0) Seconds INR 1.0 (0.9-1.1) APTT 27.0 (21.0-31.0) Seconds PTT Ratio 1.0 Sodium (136-145) mmol/L Potassium (3.5-5.1) mmol/L Chloride (98-107) mmol/L Carbon Dioxide (21-32) mmol/L Anion Gap (3-11) BUN (6-23) mg/dl Creatinine (0.6-1.2) mg/dl Est Cr Clr Drug Dosing ml/min Est GFR ( Amer) ml/min Est GFR (Non-Af Amer) ml/min BUN/Creatinine Ratio (10-20) Glucose (70-99(Fasting)) mg/dl POC Glucose (70-99) mg/dl Calcium (8.6-10.3) mg/dl Magnesium (1.7-2.4) mg/dl Total Bilirubin (0.2-1.0) mg/dl AST (13-39) U/L ALT (7-52) U/L Alkaline Phosphatase (34-104) U/L Troponin I High Sens (0-14) pg/ml Total Protein (6.0-8.3) gm/dl Albumin (3.4-5.0) gm/dl Globulin (2.5-4.0) gm/dl Albumin/Globulin Ratio (0.9-2) SARS-CoV-2, RNA, NAAT (NEGATIVE) Blood Type B Positive Antibody Screen NEGATIVE 07/11/22 07/11/22 07/11/22 Range/Units 17:14 17:14 18:19 WBC (4.8-10.8) K/ul RBC (4.20-5.40) M/uL Hgb (12.0-16.0) g/dl Hct (37.0-47.0) % MCV (80.0-100.0) fL MCH (25.0-34.0) pg MCHC (32.0-36.0) g/dL RDW Std Deviation (36.4-46.3) fL RDW Coeff of [place] (11.5-14.5) % Plt Count (130-400) K/uL MPV (9.4-12.4) fL Immature Gran % (Auto) % Neut % (Auto) % Lymph % (Auto) % [place] % (Auto) % Eos % (Auto) % Baso % (Auto) % Neut # (Auto) (1.40-6.50) K/uL Lymph # (Auto) (1.2-3.4) K/uL [place] # (Auto) (0.11-0.59) K/uL Eos # (Auto) (0-0.50) K/uL Baso # (Auto) (0-0.2) K/uL Immature Gran # (Auto) (0.01-0.20) K/uL PT (9.0-12.0) Seconds INR (0.9-1.1) APTT (21.0-31.0) Seconds PTT Ratio Sodium 136 (136-145) mmol/L Potassium 3.5 (3.5-5.1) mmol/L Chloride 108 H (98-107) mmol/L Carbon Dioxide 24 (21-32) mmol/L Anion Gap 4 (3-11) BUN 21 (6-23) mg/dl Creatinine 0.73 (0.6-1.2) mg/dl Est Cr Clr Drug Dosing 81.9 ml/min Est GFR ( Amer) 105.2 ml/min Est GFR (Non-Af Amer) 90.8 ml/min BUN/Creatinine Ratio 28.8 H (10-20) Glucose 92 (70-99(Fasting)) mg/dl POC Glucose 92 (70-99) mg/dl Calcium 8.7 (8.6-10.3) mg/dl Magnesium 1.9 (1.7-2.4) mg/dl Total Bilirubin 0.5 (0.2-1.0) mg/dl AST 12 L (13-39) U/L ALT 12 (7-52) U/L Alkaline Phosphatase 76 (34-104) U/L Troponin I High Sens 3.0 (0-14) pg/ml Total Protein 6.5 (6.0-8.3) gm/dl Albumin 4.0 (3.4-5.0) gm/dl Globulin 2.5 (2.5-4.0) gm/dl Albumin/Globulin Ratio 1.6 (0.9-2) SARS-CoV-2, RNA, NAAT NEGATIVE (NEGATIVE) Blood Type Antibody Screen Imaging Data Attestation: I personally reviewed and interpreted this imaging study as follows: My Impression: CT head: No ICH Radiologist's Impression: Chest X-Ray 07/11/22 16:57 XR chest 1V portable HISTORY: Slurred speech. neuro deficit, acute stroke suspected COMPARISON: Chest 05/19/2017. FINDINGS: The lungs are clear. Cardiac silhouette is normal in size. No pleural effusions. No pneumothorax. IMPRESSION: No acute process. ACT 112: Negative or not required by law. Electronically signed by: Mario Cardenas M.D. 07/11/2022 5:[address] 07/11/22 16:[address] DOSE: HISTORY: Slurred speech. neuro deficit, acute stroke suspected TECHNIQUE: Multiaxial CT images of the head were performed without the use of intravenous contrast. Automated exposure control was utilized for this study. A dose lowering technique was utilized adhering to the principles of ALARA. Comparison: None. Findings: Small retention cysts within the left maxillary sinus. The remaining paranasal sinuses and mastoid air cells are clear. The calvarium and skull base are intact. The ventricles and sulci are within normal limits. There is no mass, hematoma, midline shift, or acute infarct. Impression: No acute intracranial abnormality. ACT 112: Negative or not required by law. Electronically signed by: Mario Cardenas M.D. 07/11/2022 5:19 PM Head CTA 07/11/22 16:57 HEAD & NECK CTA HISTORY: neuro deficit, acute stroke suspected TECHNIQUE: Multiaxial CT images of the head were performed following the i ntravenous administration of contrast to evaluate the major cerebral vessels. Multiaxial CT images of the neck were also performed following the intravenous administration of contrast to evaluate the major cervical vessels. Maximum intensity projection images were also obtained. A dose lowering technique was utilized adhering to the principles of ALARA. COMPARISON: None. FINDINGS: There is no mass, hematoma, midline shift, or acute infarct. Visualized intracranial internal carotid arteries, distal vertebral arteries, and basilar artery are widely patent. There is no significant stenosis, occlusion, or aneurysm seen within the bilateral ACAs, MCAs, or etcher hand. There is a persistent right posterior circulation. There is a severely hypoplastic right A1 segment. These are considered to be normal variants. The major dural venous sinuses are patent. The aortic arch and proximal great vessels are widely patent. There is no significant stenosis, occlusion, or dissection identified within the bilateral common carotid, internal carotid, or vertebral arteries. There is a 1.4 cm right parotid gland nodule. IMPRESSION: 1. No significant stenosis, occlusion, or aneurysm within the [place]. 2. No significant stenosis, occlusion, or dissection identified within the carotid or vertebral arteries. 3. A 1.4 cm right parotid gland nodule. Follow-up nonemergent ENT consultation recommended for further evaluation. ACT 112: Negative or not required by law. Electronically signed by: Mario Cardenas M.D. 07/11/2022 5:25 PM Neck CTA 07/11/22 16:57 HEAD & NECK CTA HISTORY: neuro deficit, acute stroke suspected TECHNIQUE: Multiaxial CT images of the head were performed following the intravenous administration of contrast to evaluate the major cerebral vessels. Multiaxial CT images of the neck were also performed following the intravenous administration of contrast to evaluate the major cervical vessels. Maximum intensity projection images were also obtained. A dose lowering technique was utilized adhering to the principles of ALARA. COMPARISON: None. FINDINGS: There is no mass, hematoma, midline shift, or acute infarct. Visualized intracranial internal carotid arteries, distal vertebral arteries, and basilar artery are widely patent. There is no significant stenosis, occlusion, or aneurysm seen within the bilateral ACAs, MCAs, or etcher hand. There is a persistent right posterior circulation. There is a severely hypoplastic right A1 segment. These are considered to be normal variants. The major dural venous sinuses are patent. The aortic arch and proximal great vessels are widely patent. There is no significant stenosis, occlusion, or dissection identified within the bilateral common carotid, internal carotid, or vertebral arteries. There is a 1.4 cm right parotid gland nodule. IMPRESSION: 1. No significant stenosis, occlusion, or aneurysm within the [place]. 2. No significant stenosis, occlusion, or dissection identified within the carotid or vertebral arteries. 3. A 1.4 cm right parotid gland nodule. Follow-up nonemergent ENT consultation recommended for further evaluation. ACT 112: Negative or not required by law. Electronically signed by: Mario Cardenas M.D. 07/11/2022 5:25 PM ECG Data Attestation: I personally reviewed and interpreted this ECG as follows: Rate (beats per minute): 86 Rhythm: + normal sinus ECG Intervals/blocks: + Normal QRS, + Normal IN and + Normal QT-c ECG ST segments: + Normal ST segments MDM Narrative 1657: The patient was evaluated in room triage 1. A history and physical exam was performed Patient was taken to CT scan and code stroke called. 1707: CT of the head reviewed by me without contrast shows no ICH. Spoke with Dr. Jocelyne Neves telestroke will evaluate the patient. 1716: Cardiac monitoring: An order was placed for continuous cardiac monitoring. The monitor shows a rate of 100 with sinus rhythm interpreted by me 1718: Dr. Casanova on the telestroke cart with the patient. 1728: Per nurses and stroke nurse Dr. Casanova recommends labetalol 20 mg IV push. 1736: Patient's blood pressure improved status post labetalol. Patient's dysarthria and expressive aphasia has improved. Spoke with Dr. Casanova who recommends against TNK. She thinks that the patient symptoms are most likely due to hypertensive urgency/hypertensive encephalopathy. Patient will be admitted to the hospitalist team for further work-up. She recommends aspirin and IV fluids. Impression & Plan Hypertensive emergency, Transient cerebral ischemia, Encephalopathy, hypertensive Discharge Plan Visit Data Chief Complaint: TIA Symptoms Stated Complaint: SLURRY SPEECH, ED Provider: Kali Estrada Discharge Problem: Hypertensive emergency, Transient cerebral ischemia, Encephalopathy, h ypertensive Patient Disposition: Admitted As Inpatient Discharge Instructions Interventions: ED Discharge Assessment Last Done: 07/11/22 21:13
--- NOTE | 2022-07-11 17:20 | CT Scan Report ---
HEAD CT NONCONTRAST CT DOSE: HISTORY: Slurred speech. neuro deficit, acute stroke suspected TECHNIQUE: Multiaxial CT images of the head were performed without the use of intravenous contrast. A utomated exposure control was utilized for this study. A dose lowering technique was utilized adheri ng to the principles of ALARA. Comparison: None. Findings: Small retention cysts within the left maxillary sinus. The remaining paranasal sinuses and mastoid air cells are clear. The calvarium and skull base are intact. The ventricles and sulci are wi thin normal limits. There is no mass, hematoma, midline shift, or acute infarct. Impression: No acute intracranial abnormality. ACT 112: Negative or not required by law. Electronically signed by: Mario Cardenas M.D. 07/11/2022 5:19 PM
[2022-07-11] MEDS ORDERED: LABETALOL HCL IV 5 MG/ML 20ML IV ONE (17:25)
--- NOTE | 2022-07-11 17:26 | CT Scan Report ---
HEAD & NECK CTA HISTORY: neuro deficit, acute stroke suspected TECHNIQUE: Multiaxial CT images of the head were performed following the intravenous administration o f contrast to evaluate the major cerebral vessels. Multiaxial CT images of the neck were also perform ed following the intravenous administration of contrast to evaluate the major cervical vessels. Maxim um intensity projection images were also obtained. A dose lowering technique was utilized adhering to the principles of ALARA. COMPARISON: None. FINDINGS: There is no mass, hematoma, midline shift, or acute infarct. Visualized intracranial internal carotid arteries, distal vertebral arteries, and basilar artery are widely patent. There is no significant s tenosis, occlusion, or aneurysm seen within the bilateral ACAs, MCAs, or starch mangle tender. There is a persistent right posterior circulation. There is a severely hypoplastic right A1 segment. These are consid ered to be normal variants. The major dural venous sinuses are patent. The aortic arch and proximal great vessels are widely patent. There is no significant stenosis, occ lusion, or dissection identified within the bilateral common carotid, internal carotid, or vertebral arteries. There is a 1.4 cm right parotid gland nodule. IMPRESSION: 1. No significant stenosis, occlusion, or aneurysm within the [place]. 2. No significant stenosis, occlusion, or dissection identified within the carotid or vertebral arter ies. 3. A 1.4 cm right parotid gland nodule. Follow-up nonemergent ENT consultation recommended for [facility] evaluation. ACT 112: Negative or not required by law. Electronically signed by: Mario Cardenas M.D. 07/11/2022 5:25 PM
--- NOTE | 2022-07-11 17:26 | CT Scan Report ---
HEAD & NECK CTA HISTORY: neuro deficit, acute stroke suspected TECHNIQUE: Multiaxial CT images of the head were performed following the intravenous administration o f contrast to evaluate the major cerebral vessels. Multiaxial CT images of the neck were also perform ed following the intravenous administration of contrast to evaluate the major cervical vessels. Maxim um intensity projection images were also obtained. A dose lowering technique was utilized adhering to the principles of ALARA. COMPARISON: None. FINDINGS: There is no mass, hematoma, midline shift, or acute infarct. Visualized intracranial internal carotid arteries, distal vertebral arteries, and basilar artery are widely patent. There is no significant s tenosis, occlusion, or aneurysm seen within the bilateral ACAs, MCAs, or oyster cultivator. There is a persistent right posterior circulation. There is a severely hypoplastic right A1 segment. These are consid ered to be normal variants. The major dural venous sinuses are patent. The aortic arch and proximal great vessels are widely patent. There is no significant stenosis, occ lusion, or dissection identified within the bilateral common carotid, internal carotid, or vertebral arteries. There is a 1.4 cm right parotid gland nodule. IMPRESSION: 1. No significant stenosis, occlusion, or aneurysm within the [place]. 2. No significant stenosis, occlusion, or dissection identified within the carotid or vertebral arter ies. 3. A 1.4 cm right parotid gland nodule. Follow-up nonemergent ENT consultation recommended for [facility] evaluation. ACT 112: Negative or not required by law. Electronically signed by: Mario Cardenas M.D. 07/11/2022 5:25 PM
[2022-07-11 17:33] LABS: Basophils # (auto) 0.03 K/uL (0-0.2); Basophils % (auto) 0.5 %; Eosinophils # (auto) 0.18 K/uL (0-0.50); Eosinophils % (auto) 2.9 %; Hematocrit (blood only) 38.4 % (37.0-47.0); Hemoglobin 13.2 g/dl (12.0-16.0); Immature Granulocytes # (auto) 0.01 K/uL (0.01-0.20); Immature Granulocytes % (auto) 0.2 %; Lymphocytes # (auto) 2.54 K/uL (1.2-3.4); Lymphocytes % (auto) 40.8 %; Mean Corpuscular Hemoglobin 32.3 pg (25.0-34.0); Mean Corpuscular Hgb Conc 34.4 g/dL (32.0-36.0); Mean Corpuscular Volume 93.9 fL (80.0-100.0); Mean Platelet Volume 9.7 fL (9.4-12.4); Monocytes # (auto) 0.39 K/uL (0.11-0.59); Monocytes % (auto) 6.3 %; Neutrophils # (auto) 3.07 K/uL (1.40-6.50); Neutrophils % (auto) 49.3 %; Platelet Count 217 K/uL (130-400); RDW Coefficient of Variation 12.7 % (11.5-14.5); RDW Standard Deviation 43.9 fL (36.4-46.3); Red Blood Count 4.09 M/uL (4.20-5.40); White Blood Count 6.22 K/ul (4.8-10.8)
[2022-07-11] MEDS ORDERED: ASPIRIN CHEW 324 MG PO STA (17:47)
--- NOTE | 2022-07-11 17:50 | XRay Report ---
XR chest 1V portable HISTORY: Slurred speech. neuro deficit, acute stroke suspected COMPARISON: Chest 05/19/2017. FINDINGS: The lungs are clear. Cardiac silhouette is normal in size. No pleural effusions. No pneumot horax. IMPRESSION: No acute process. ACT 112: Negative or not required by law. Electronically signed by: Mario Cardenas M.D. 07/11/2022 5:49 PM
[2022-07-11 17:52] LABS: Albumin Globulin Ratio 1.6 (0.9-2); BUN Creatinine Ratio 28.8 (10-20); Bilirubin,Total 0.5 mg/dl (0.2-1.0); Calcium 8.7 mg/dl (8.6-10.3); Creatinine Clr Calc Pharmacy 81.9 ml/min; Est GFR (African American) 105.2 ml/min; Est GFR (Non-African American) 90.8 ml/min; Globulin 2.5 gm/dl (2.5-4.0); Magnesium 1.9 mg/dl (1.7-2.4); Potassium 3.5 mmol/L (3.5-5.1); Total Protein 6.5 gm/dl (6.0-8.3)
[2022-07-11 18:01] LABS: Prothrombin Time 11.1 Seconds (9.0-12.0)
[2022-07-11] MEDS: SODIUM CHLORIDE 0.9% 1000ML 1,000 ML IV SCH (18:20)
--- NOTE | 2022-07-11 19:00 | History & Physical Report ---
Date of Service July 11, 2022 Assessment & Plan (1) Stroke-like symptom: (2) Hypertensive emergency: (3) Smoker: Plan Patient presented with slurred speech and word findign difficulty that started About [address] did not show any intracranial hemorrhage or acute abnormality. Head and neck CT angio did not show any significant stenosis, occlusion or aneurysm. Noted a 1.4 cm right parotid gland nodule. Patient's blood pressure was elevated on presentation. Blood pressure was up to 202/103 Patient got a dose of IV labetalol 20 mg and aspirin 324 mg. According to ER physician, patient was evaluated by telemetry neurologist who recommends keeping blood pressure systolic to 170-1 80 and to get MRI brain. Differentials include TIA/CVA, hypertensive emergency. Will use IV labetalol prn to keep BP within recommended range. Will eventually need po antihypertensives. Will hold off starting this now since BP is currently 166/98. Get MRI brain Reviewed EKG. NSR Get TTE Lipid panel, hemoglobin A1c Patient passed dysphagia screen. Heart healthy diet ordered. Will follow up neuro consult in the morning Counseled extensively regarding smoking cessation. Declined nicotine replacement therapy DVT ppx- SCD I spent a total of 75 minutes coordinating, documenting and providing care for this patient excluding time spent in performance of separately billed services History of Present Illness Chief Complaint: Slurred speech and word finding difficulty Primary Care Provider: Branden Julian DO 50-year-old woman with medical history of bile salt induced diarrhea, basal cell carcinoma of left ear, active smoker who presents with strokelike symptoms. 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 Denied similar symptoms in the past. Denied any headache, dizziness, fall. Denied any numbness, focal weakness Denies any blurry vision but stated that she may have had a flash of light in her peripheral vision earlier in the day. Patient states still has some word finding difficulty. However, speech is not slurred during my evaluation. Patient smokes about 1 pack of cigarettes per day. Reports that she has been smoking for up to 20 years but there was a 8-year period where she quit. Denies alcohol or any illicit drug use. Reports family history of heart attack in father at 54. Reports maternal aunt has diabetes. Reports past surgical history of cholecystectomy and sections. Denied any known drug allergies. Allergies Allergy/AdvReac Type Severity Reaction Status Date / Time No Known Allergies Allergy Unknown Verified 07/11/22 17:50 Home Medications Medication Instructions Recorded Confirmed Type No Known Home Medications 07/11/22 07/11/22 History Past Med/Surg History Medical History No pertinent family history No pertinent past medical history Surgical History S/P cholecystectomy Social History (Updated 07/11/22 @ 18:41 by Akua Washburn MD) Smoking Status: Current every day smoker Preferred Language: Chinese Feels Safe at Home: Yes Review of Systems Constitutional: no fever, no body aches and no weakness Ear, Nose, Mouth, Throat: no ear pain, no tinnitus, no hearing loss and no dizziness Respiratory: no cough, no dyspnea and no dyspnea on exertion Cardiovascular: no chest pain, no dyspnea, no palpitations and no lightheadedness Gastrointestinal: no abdominal pain, no nausea and no vomiting Genitourinary: no dysuria, no difficulty urinating and no urinary frequency Musculoskeletal: no back pain, no neck pain and no myalgia Neurologic: + abnormal speech; no localized weakness, no numbness, no paresthesia and no tremor(s) Psychiatric: no depression and no anxiety Physical Exam Constitutional: + well hydrated; no acute distress Eyes: PERRL, conjunctivae normal, anicteric sclerae ENMT: external ear and nose normal, oropharynx normal Respiratory: normal respiratory effort, lungs clear to auscultation Cardiovascular: Rate/Rhythm: regular rate and regular rhythm S1 S2 BP 166/98 Gastrointestinal (Abdomen): normal bowel sounds, soft, nontender, no hepatosplenomegaly Musculoskeletal: no cyanosis or clubbing, extremities motor strength 5/5 Neurologic: PERRL, EOMI No facial asymmetry +Word finding difficulty CN II, III, IV, V, , VII, VIII, IX, X, XII grossly intact No focal sensory deficits Power is normal and equal in all extremities bilaterally Psychiatric: A+Ox3, euthymic affect Results & Data Results & Data Vital Signs (Past 12 Hours) Vital Signs Temp Pulse Pulse Resp BP BP Pulse Ox 07/11/22 17:41 71 18 174/109 H 97 07/11/22 17:18 105 H 07/11/22 17:22 81 17 180/118 H 98 07/11/22 17:18 89 16 202/103 H 98 07/11/22 16:50 36.6 C 107 H 18 191/109 H 91 O2 Del Method 07/11/22 17:41 Room Air 07/11/22 17:18 07/11/22 17:22 Room Air 07/11/22 17:18 Room Air 07/11/22 16:50 Room Air Laboratory Results Laboratory Results - last 24 hr 07/11/22 07/11/22 07/11/22 17:14 17:14 17:14 WBC 6.22 RBC 4.09 L Hgb 13.2 Hct 38.4 MCV 93.9 MCH 32.3 MCHC 34.4 RDW Std Deviation 43.9 RDW Coeff of [place] 12.7 Plt Count 217 MPV 9.7 Immature Gran % (Auto) 0.2 Neut % (Auto) 49.3 Lymph % (Auto) 40.8 [place] % (Auto) 6.3 Eos % (Auto) 2.9 Baso % (Auto) 0.5 Neut # (Auto) 3.07 Lymph # (Auto) 2.54 [place] # (Auto) 0.39 Eos # (Auto) 0.18 Baso # (Auto) 0.03 Immature Gran # (Auto) 0.01 PT 11.1 INR 1.0 APTT 27.0 PTT Ratio 1.0 Sodium Potassium Chloride Carbon Dioxide Anion Gap BUN Creatinine Est Cr Clr Drug Dosing Est GFR ( Amer) Est GFR (Non-Af Amer) BUN/Creatinine Ratio Glucose POC Glucose Calcium Magnesium Total Bilirubin AST ALT Alkaline Phosphatase Troponin I High Sens Total Protein Albumin Globulin Albumin/Globulin Ratio SARS-CoV-2, RNA, NAAT Blood Type B Positive Antibody Screen NEGATIVE 07/11/22 07/11/22 07/11/22 17:14 17:14 18:19 WBC RBC Hgb Hct MCV MCH MCHC RDW Std Deviation RDW Coeff of [place] Plt Count MPV Immature Gran % (Auto) Neut % (Auto) Lymph % (Auto) [place] % (Auto) Eos % (Auto) Baso % (Auto) Neut # (Auto) Lymph # (Auto) [place] # (Auto) Eos # (Auto) Baso # (Auto) Immature Gran # (Auto) PT INR APTT PTT Ratio Sodium 136 Potassium 3.5 Chloride 108 H Carbon Dioxide 24 Anion Gap 4 BUN 21 Creatinine 0.73 Est Cr Clr Drug Dosing 81.9 Est GFR ( Amer) 105.2 Est GFR (Non-Af Amer) 90.8 BUN/Creatinine Ratio 28.8 H Glucose 92 POC Glucose 92 Calcium 8.7 Magnesium 1.9 Total Bilirubin 0.5 AST 12 L ALT 12 Alkaline Phosphatase 76 Troponin I High Sens 3.0 Total Protein 6.5 Albumin 4.0 Globulin 2.5 Albumin/Globulin Ratio 1.6 SARS-CoV-2, RNA, NAAT Pending Blood Type Antibody Screen Diagnostic Findings HEAD CT NONCONTRAST CT DOSE: HISTORY: Slurred speech. neuro deficit, acute stroke suspected TECHNIQUE: Multiaxial CT images of the head were performed without the use of intravenous contrast. Automated exposure control was utilized for this study. A dose lowering technique was utilized adhering to the principles of ALARA. Comparison: None. Findings: Small retention cysts within the left maxillary sinus. The remaining paranasal sinuses and mastoid air cells are clear. The calvarium and skull base are intact. The ventricles and sulci are within normal limits. There is no mass, hematoma, midline shift, or acute infarct. Impression: No acute intracranial abnormality. HEAD & NECK CTA HISTORY: neuro deficit, acute stroke suspected TECHNIQUE: Multiaxial CT images of the head were performed following the intravenous administration of contrast to evaluate the major cerebral vessels. Multiaxial CT images of the neck were also performed following the intravenous administration of contrast to evaluate the major cervical vessels. Maximum intensity projection images were also obtained. A dose lowering technique was utilized adhering to the principles of ALARA. COMPARISON: None. FINDINGS: There is no mass, hematoma, midline shift, or acute infarct. Visualized intracranial internal carotid arteries, distal vertebral arteries, and basilar artery are widely patent. There is no significant stenosis, occlusion, or aneurysm seen within the bilateral ACAs, MCAs, or check cashier. There is a persistent right posterior circulation. There is a severely hypoplastic right A1 segment. These are considered to be normal variants. The major dural venous sinuses are patent. The aortic arch and proximal great vessels are widely patent. There is no significant stenosis, occlusion, or dissection identified within the bilateral common carotid, internal carotid, or vertebral arteries. There is a 1.4 cm right parotid gland nodule. IMPRESSION: 1. No significant stenosis, occlusion, or aneurysm within the alturas of [place]. 2. No significant stenosis, occlusion, or dissection identified within the carotid or vertebral arteries. 3. A 1.4 cm right parotid gland nodule. Follow-up nonemergent ENT consultation recommended for further evaluation. Code Status & VTE Plan Code Status Full code
[2022-07-11] MEDS ORDERED: GADOBUTROL 65ML VIAL IV ONE (19:41)
--- NOTE | 2022-07-11 20:23 | Magnetic Resonance Report ---
Brain MRI WITH AND WITHOUT CONTRAST HISTORY: Slurred speech. Rule out CVA TECHNIQUE: Multiplanar multisequence MRI of the brain was performed both before and after the intrave nous administration of contrast. COMPARISON STUDY: Head CT 07/11/2022. FINDINGS: There is a 7 mm focus of restricted diffusion within the left posterior frontal lobe on marck ge 18 of the DWI sequences. This is consistent with a small acute infarct. The midline structures are intact. There are small retention cyst within the left maxillary sinus. The mastoid air cells are cl ear. The major vascular flow-voids at the skull base are well-maintained. The ventricles and sulci ar e within normal limits. The orbits are unremarkable. There is no mass, hematoma, midline shift. There are few scattered punctate foci of T2 hyperintensity seen within the periventricular white matter of the supratentorial brain. These are nonspecific but favor minimal microvascular ischemic change give n the patient's age. Postcontrast sequences show a faint blush of contrast within the central rosa me asuring 6 mm. This favors a capillary telangectasia. There is 1.2 cm nodule within the right parotid gland again noted. IMPRESSION: 1. A 7 mm acute infarct involving the left posterior frontal lobe. 2. A 1.2 cm right parotid gland nodule again noted. Follow-up nonemergent ENT consultation recommende d. 3. A 6 mm faint blush of contrast enhancement within the central rosa which favors a capillary telang ectasia. Therefore, this is of doubtful clinical significance. ACT 112: Positive. There are findings on this exam that require communication between the performing entity and the patient following Patient Test Result Information Act ([place] Act 112) guidelines. Electronically signed by: Mario Cardenas M.D. 07/11/2022 8:21 PM
[2022-07-11] MEDS ORDERED: LABETALOL HCL IV 5 MG/ML 20ML IV PRN (21:31)
[2022-07-12] MEDS: SODIUM CHLORIDE 0.9% 1000ML 1,000 ML IV SCH (05:59)
[2022-07-12 06:01] LABS: Hemoglobin 13.1 g/dl (12.0-16.0); Mean Corpuscular Hgb Conc 34.5 g/dL (32.0-36.0); Mean Corpuscular Volume 92.9 fL (80.0-100.0); Mean Platelet Volume 9.8 fL (9.4-12.4); Platelet Count 202 K/uL (130-400); RDW Coefficient of Variation 12.7 % (11.5-14.5); RDW Standard Deviation 43.4 fL (36.4-46.3); Red Blood Count 4.09 M/uL (4.20-5.40); White Blood Count 5.88 K/ul (4.8-10.8)
[2022-07-12 06:14] LABS: BUN Creatinine Ratio 22.8 (10-20); Calcium 8.7 mg/dl (8.6-10.3); Chol HDL Ratio 5.2 (0-5); Creatinine Clr Calc Pharmacy 104.4 ml/min; Est GFR (African American) 118.4 ml/min; Est GFR (Non-African American) 102.2 ml/min; Phosphorus 3.2 mg/dl (2.5-4.9); Potassium 3.7 mmol/L (3.5-5.1)
[2022-07-12 07:59] LABS: Estimated Average Glucose 103 mg/dl; Hemoglobin A1C 5.2 % (4.5-5.6)
[2022-07-12] MEDS ORDERED: ATORVASTATIN 40 MG TAB PO SCH (09:00)
[2022-07-12] MEDS ORDERED: ASPIRIN 81 MG ECTAB PO SCH (09:00)
--- NOTE | 2022-07-12 09:16 | Neurology Consultation ---
Date of Consultation July 12, 2022 Assessment & Plan (1) Acute CVA (cerebrovascular accident): (2) Dysarthria: (3) Hypertensive emergency: Plan this patient has suffered a very tiny left posterior frontal CVA July 11, resulting in some dysarthria and expressive aphasia. She is markedly improved today, with only a little bit of residual speech issue. The rest of her neurologic examination is unremarkable without focal findings, meningeal signs, or any encephalopathy. She is a longstanding cigarette smoker and had markedly elevated hypertension in the ER. This is improved some this morning. MRI showed very mild old small vessel ischemic disease in addition to the tiny stroke. 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 Recommendations: 1. continue 81 milligram aspirin tablet daily. 2. Continue atorvastatin 40 milligrams daily. She is not necessarily high dose statin candidate 3. Control blood pressure as you are doing Genet from the arterial pressure of 95- 100. 4. Awaiting echocardiogram 5. Increase activity as able. Overall, I spent a total of 60 minutes with this case including review of records, review of MRI and CT films, report generation, direct evaluation the patient at bedside, and discussing the case with the patient and RN at bedside and Dr. Washburn, including differential diagnosis and treatment options. History of Present Illness Reason for Consultation: Patient is a 56-year-old, who I was asked to see at the request of Dr. Washburn, for neurologic consultation regarding stroke. Requesting Physician: Dr. Washburn Attending Physician: Akua Washburn MD History of Present Illness This patient was on no medication prior to admission and denies any history of hypertension, diabetes, heart disease, dyslipidemia, previous stroke. She has been a pack-a-day smoker for 20 straight years ( and prior to that she smoked before stopping for 7 years ). 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 she was struggling to find words but attributed that to fatigue. She left work at 1530, and drove to the bank. The word-finding difficulty and hesitancy in her speech was there. She then called her sister on the phone and her sister told her that her speech was slurred and she was having trouble forming sentences. She arrived to the emergency room at 16:50 with a temperature of 36.6, pulse 107 and regular, respiratory rate 18, blood pressure 191/109, and O2 saturation 91 percent. Her oxygen quickly improved but her blood pressure remained quite elevated. She had an NIH stroke scale of 2 for some mild motor aphasia and dysarthria. Tele stroke with Pura resulted in no indication for thrombolytics since she was likely having symptoms secondary to hypertension. CBC and Chem profile were unremarkable. Chest x-ray was unremarkable. CT scan of the head showed no acute changes. CT angiography of the head and neck was unremarkable for any vascular stenoses or anomalies. MRI of the brain showed a very small 7 millimeter left posterior frontal acute CVA on the periphery. There was a capillary telangiectasia change seen in the rosa and she had a 1.2 centimeter right parotid gland lesion. The patient tells me that she has had that known right-sided parotid gland lesion for years and it has been already evaluated. I reviewed all the films. Patient tells me that her speech is much better and is only mildly affected this morning. She has no new issues and denies weakness, numbness, pain, headache, vision issues, thought problems, balance problems, or incontinence. Nursing reports no new changes. CBC and Chem profile today was unremarkable. Hemoglobin A1c was 5.2 and triglycerides were 82. Total cholesterol was 193. Allergies Allergy/AdvReac Type Severity Reaction Status Date / Time No Known Allergies Allergy Unknown Verified 07/11/22 17:50 Home Medications Medication Instructions Recorded Confirmed Type No Known Home Medications 07/11/22 07/11/22 History Patient History Medical History No pertinent family history No pertinent past medical history Surgical History S/P cholecystectomy Family History Mother Hypertension Father , age 54 of an AR Myocardial infarction Social History (Updated 07/12/22 @ 09:10 by Denver Easley MD) Smoking Status: Current every day smoker Age Started Using Tobacco: 36; packs per day: 1; Second Hand Exposure: No; Do You Dip or Chew Tobacco: No; Hx Alcohol Use: No Hx Substance Use: No Preferred Language: Occitan Communication Ability: Effective Steam Setter Required: No Beliefs That Will Affect Care: None Current Living Situation: Spouse current occupational status: employed 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 Feels Safe at Home: Yes Assistive Devices: Contacts Review of Systems Constitutional: no fever, no fatigue and no weakness Eyes: no diplopia, no eye pain and no worsening vision Ear, Nose, Mouth, Throat: no ear pain, no tinnitus, no hearing loss, no dizziness, no snoring, no hoarseness and no dysphagia Respiratory: no cough and no dyspnea Cardiovascular: no chest pain, no palpitations and no lightheadedness Gastrointestinal: no abdominal pain, no nausea and no vomiting Genitourinary: no dysuria, no urinary frequency and no urinary incontinence Musculoskeletal: no back pain, no neck pain, no radicular pain, no joint pain and no myalgia Integumentary: no rash and no lesions Neurologic: + abnormal speech; no gait abnormality, no localized weakness, no generalized weakness, no tingling, no numbness, no tremor(s), no abnormal movements, no headache(s), no confusion and no memory loss Psychiatric: no depression, no irritability, no anxiety, no difficulty concentrating, no confusion and no hallucinations Endocrine: no fatigue and no flushing Hematologic / Lymphatic: no easy bleeding and no easy bruising Allergy / Immunological: no urticaria and no problem reported Exam (Neuro) Physical Exam: The patient is right-handed. The patient is awake, alert, and attentive. Speech is without any expressive or receptive aphasia. She can name objects and read sentences well. She does have some very mild dysarthria / hesitancy to her speech. The patient can name objects, repeat phrases, and has normal spontaneous speech. Mentation and thought processes are intact, with orientation to person, place and time, and normal fund of knowledge. Attention and concentration are normal. Mood and affect are normal and appropriate. General appearance and grooming are normal. Short and long-term memory are intact. The discs are sharp with positive venous pulsations bilaterally. There are no exudates, hemorrhages, or blood vessel changes seen. Pupils are 4 mm bilaterally and reactive to light. Extraocular eye muscles are intact without nystagmus. Visual acuity and visual bates seem normal grossly to confrontation. There are no deficits to sensation in the face in all 3 distributions of the fifth cranial nerve bilaterally. Corneal reflexes are positive bilaterally. Facial strength and symmetry was normal bilaterally. Hearing seems normal bilaterally. Palate moves well without asymmetry. There is normal sternocleidomastoid and trapezius (shoulder shrug) strength bilaterally. Tongue is midline with good strength bilaterally. Neck has a full range of motion without discomfort. There are no cervical bruits bilaterally. There are no cranial or ocular bruits. Heart is without murmur. There is a regular rhythm and rate. Cervical, thoracic, and lumbar spine are nontender to palpation. Gait is narrow based, with good arm swing, turns, and stance. With outstretched arms there is no drift. There are no resting, postural, or action tremors. There is no ataxia with finger to nose testing. There is good facility in the hands. No other abnormal involuntary movements are noted. Motor strength is 5/5 diffusely in the arms bilaterally including deltoids, biceps, triceps, brachioradialis, wrist flexors and extensors, cycle repairer, and intrinsic hand muscles. Motor strength is 5/5 diffusely in the legs bilaterally including hip flexors, quadriceps, hamstrings, gastrocnemius, tibialis anterior, tibialis posterior, and [place]ii muscles. Toe extensors are normal and there is good bulk in the extensor digitorum brevis muscles bilaterally. The limbs have good tone without rigidity or spasticity. There is no atrophy noted in the muscles. Muscle bulk is normal, there is no tenderness to palpation, no myotonia to percussion, and no fasciculations seen. Sensory examination is intact to touch and pin throughout all 4 limbs diffusely. Reflexes are 2/4 in the biceps, triceps, brachioradialis, quadriceps, and Achilles tendons bilaterally. There is no clonus bilaterally. Toes are downgoing with plantar stimulation bilaterally. Peripheral pulses are present and of normal quality distally in all 4 limbs. There is no peripheral edema noted in the limbs. Results & Data Vital Signs (Past 12 Hours) Vital Signs Temp Pulse Pulse Resp BP Pulse Ox O2 Del Method 07/12/22 08:18 63 07/12/22 08:07 36.8 C 63 17 156/82 H 95 Room Air 07/12/22 03:41 36.7 C 68 20 148/77 H 98 Room Air 07/11/22 21:30 72 07/11/22 23:00 36.4 C L 65 20 152/77 H 96 Room Air 07/11/22 21:50 36.3 C L 73 15 168/93 H 95 Room Air PG Care Time/CCT Total # of Minutes Spent Total Time Spent with Patient: Total time spent is greater than 50% in coordination of care (as documented) at patient's floor/unit and/or counseling patient: Coding Level of Care Code 97946 IN/OBS CONSULT LVL 4,60M Diagnoses Acute CVA (cerebrovascular accident) I63.9 Dysarthria R47.1 Hypertensive emergency I16.1 Time Spent (min) 60
[2022-07-12] MEDS ORDERED: amLODIPine BESYLATE 5 MG TAB PO SCH (09:45)
--- NOTE | 2022-07-12 14:47 | Discharge Summary ---
Date of Service July 12, 2022 Admission HPI Per Admitting Provider 50-year-old woman with medical history of bile salt induced diarrhea, basal cell carcinoma of left ear, active smoker who presents with strokelike symptoms. 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 Denied similar symptoms in the past. Denied any headache, dizziness, fall. Denied any numbness, focal weakness Denies any blurry vision but stated that she may have had a flash of light in her peripheral vision earlier in the day. Patient states still has some word finding difficulty. However, speech is not slurred during my evaluation. Patient smokes about 1 pack of cigarettes per day. Reports that she has been smoking for up to 20 years but there was a 8-year period where she quit. Denies alcohol or any illicit drug use. Reports family history of heart attack in father at 54. Reports maternal aunt has diabetes. Reports past surgical history of cholecystectomy and sections. Denied any known drug allergies. Admission Exam Per Admitting Provider Constitutional: + well hydrated; no acute distress Eyes: PERRL, conjunctivae normal, anicteric sclerae ENMT: external ear and nose normal, oropharynx normal Respiratory: normal respiratory effort, lungs clear to auscultation Cardiovascular: Rate/Rhythm: regular rate and regular rhythm S1 S2 BP 166/98 Gastrointestinal (Abdomen): normal bowel sounds, soft, nontender, no hepatosplenomegaly Musculoskeletal: no cyanosis or clubbing, extremities motor strength 5/5 Neurologic: PERRL, EOMI No facial asymmetry +Word finding difficulty CN II, III, IV, V, , VII, VIII, IX, X, XII grossly intact No focal sensory deficits Power is normal and equal in all extremities bilaterally Psychiatric: A+Ox3, euthymic affect Principal Diagnosis Acute CVA Discharge Exam Constitutional + well hydrated; no acute distress Eyes PERRL, conjunctivae normal, anicteric sclerae ENMT external ear and nose normal, oropharynx normal Respiratory normal respiratory effort, lungs clear to auscultation Cardiovascular Rate/Rhythm: regular rate and regular rhythm S1 S2 Gastrointestinal (Abdomen) normal bowel sounds, soft, nontender, no hepatosplenomegaly Musculoskeletal no cyanosis or clubbing, extremities motor strength 5/5 Neurologic patellar DTR's 2+ bilat, sensation intact and PERRL, EOMI, accommodation nl, no face palsy, no dysarthria Psychiatric A+Ox3, euthymic affect Discharge Data Allergies Allergy/AdvReac Type Severity Reaction Status Date / Time No Known Allergies Allergy Unknown Verified 07/11/22 17:50 Consultations 07/11/22 17:47 ED Decision to Admit Stat 07/11/22 17:58 ED Decision to Admit Stat 07/11/22 21:31 Consult Neurology Routine Ordered Studies 07/11/22 16:57 CT angio head w con Stat CT angio neck with con Stat CT head/brain wo con Stat 07/11/22 18:58 MRI Brain [MR brain wo/w con] Stat Hospital Course (1) Stroke-like symptom: (2) Hypertensive emergency: (3) Smoker: Plan Patient presented with slurred speech and word finding difficulty that started at the end of her workday and she quickly presented to the ER Head CT did not show any intracranial hemorrhage or acute abnormality. Head and neck CT angio did not show any significant stenosis, occlusion or aneurysm. Noted a 1.4 cm right parotid gland nodule. Patient's blood pressure was elevated on presentation. Blood pressure was up to 202/103 Patient got a dose of IV labetalol 20 mg and aspirin 324 mg. MRI brain showed 7mm acute left posterior frontal lobe infarct, very mild old small vessel ischemic disease. 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 NSR HbA1c 5.2 TTE: EF 55-60%, Has PFO, mild MR, mild TR Neurology evaluation noted. Recommend to consider follow up with Cardiology outpatient for possible further eval Started on ASA 81mg daily, atorvastatin 40mg daily and amlodipine 5mg daily Patient's BP improved to 150s/70s today Advised to keep a BP log and to follow up with PCP within the week. Antihypertensive may need to be adjusted Counseled extensively on need for smoking cessation Total Time Total Time Spent Total Time Spent (In Minutes): 40 Total Time Includes: Examination of the Patient, Discharge Planning, Medication Reconciliation and Communication With Other Providers Discharge Plan Discharge Items Patient Disposition: Home - Self-Care Reason For Visit: STROKE LIKE SYMPTOMS Discharge Diagnosis: Stroke Hypertension PFO (Patent foramen Ovale) Activity: Resume your previous activity Non-emergency contact: Primary Care Provider Call non-emergency contact if: you have any medication questions and your symptoms worsen Follow-up/Referrals: Branden Julian DO [Primary Care Provider] - (follow up with your pcp in 7 to 10 days.) Diet: Heart Healthy Addtl Attending Provider Instructions: Mrs Sandra. You came to the hospital complaining of slurred speech. You were evaluated and found to have a stroke. You were started on aspirin 81mg and atorvastatin 40mg. You were also started on amlodipine 5mg daily for blood pressure control. Please keep a log of your blood pressure at home as we discussed as your Primary Doctor may make adjustments as needed. Your echocardiogram showed patent foramen ovale (PFO) which you likely have had your whole life. However, you may need to follow up with Cardiology in the office for further evaluation. Please ensure follow up with your Primary Doctor within 1 week. Please quit smoking as we discussed It was a pleasure taking care of you. Pending Studies at Discharge: No Stand-Alone Forms: My [facility], Work/School Release, Smoking Cessation Medications and DC Order Prescriptions: New atorvastatin 40 mg Tablet 40 mg PO QAM Qty: 30 0RF amlodipine [Norvasc] 5 mg Tablet 5 mg PO QAM Qty: 30 0RF aspirin 81 mg Tablet,Delayed Release (Dr/Ec) 81 mg PO QAM Qty: 30 0RF Discharge Orders: Discharge Order (Routine); Ordered 07/12/22 Ordered By: Akua Walters/Other Patient Handouts: Patent Foramen Ovale, Stroke Stop Another Health Tips Admission Data Admit Date/Time: 07/11/22 18:36 Attending Provider: Akua Washburn I. Admit Provider: Akua Washburn I. Primary Care Provider: Branden Julian Other Providers: Justina Gonzalez ; Akua Washburn I. ; Denver Easley Other Interventions: Discharge Summary Assessment (RN) Last Done: 07/12/22 14:52
--- NOTE | 2022-07-13 19:56 | Electrocardiogram Report ---
Test Reason : Blood Pressure : / mmHG Vent. Rate : 086 BPM Atrial Rate : 086 BPM P-R Int : 194 ms QRS Dur : 092 ms QT Int : 360 ms P-R-T Axes : 041 027 025 degrees QTc Int : 430 ms Normal sinus rhythm Normal ECG When compared with ECG of 19-MAY-2017 13:11, No significant change was found Confirmed by Juan José Adkins ([id number]) on 07/13/2022 7:55:55 PM Referred By: REFERRED SELF Confirmed By:Juan José Adkins
== END 2022-07-12 15:58 | disposition home or self-care (01) ==
LOC: 4W 16:45 → ED 16:45 → 4W 21:13